=== PATIENT | male | born 1955 | race Caucasian/White ===

== ENCOUNTER 2020-12-26 09:40 | Emergency (ER) | payer MEDICARE ==
[~2020-12-26] VITALS: Ht 177.8 cm; Wt 84.1 kg
[2020-12-26] MEDS ORDERED: ondansetron/PF 4mg/2ml inj IV ONE ×5 (09:50→14:15)
[2020-12-26] MEDS ORDERED: fentaNYL/PF 50MCG/1 ML 2ML syringe IV PRN (09:50)
[2020-12-26] MEDS ORDERED: fentaNYL/PF 50MCG/1 ML 2ML syringe IV ONE ×2 (10:22→11:10)
[2020-12-26] MEDS ORDERED: bacitracin 15gm ointment TP ONE (10:25)
[2020-12-26] MEDS ORDERED: TETanus/Pertussis (Acell)/Diphther VAC/PF (Tdap-Adult) 0.5ml syringe IMVAC ONE (10:25)
[2020-12-26] MEDS ORDERED: iohexol 300mg/ml 100ml inj. ONE (10:43)
[2020-12-26 10:44] LABS: BASOPHILS % (AUTO) 0.3 % (0-1); EOSINOPHILS # (AUTO) 0.1 X10'3 (0-0.9); EOSINOPHILS % (AUTO) 1.2 % (0-6); HEMATOCRIT 42.5 % (42.0-52.0); HEMOGLOBIN 14.6 g/dl (14.0-17.9); LYMPHOCYTES # (AUTO) 0.7 X10'3 (1.1-4.8); LYMPHOCYTES % (AUTO) 11.6 % (21-51); MEAN CORPUSCULAR HEMOGLOBIN 34.2 PG (27.0-31.0); MEAN CORPUSCULAR HGB CONC 34.4 g/dL (33.0-36.5); MEAN CORPUSCULAR VOLUME 99.5 FL (78-98); MEAN PLATELET VOLUME 8.9 FL (7.4-10.4); MONOCYTES # (AUTO) 0.5 X10'3 (0-0.9); MONOCYTES % (AUTO) 7.8 % (2-12); NEUTROPHILS # (AUTO) 4.7 X10'3 (1.8-7.7); NEUTROPHILS % (AUTO) 79.1 % (42-75); PLATELET COUNT 138 X10'3 (140-440); RED BLOOD COUNT 4.28 X10'6 (4.70-6.10); RED CELL DISTRIBUTION WIDTH 13.1 % (11.5-14.5)
[2020-12-26 10:58] LABS: ALANINE AMINOTRANSFERASE 24 U/L (12-78); ALBUMIN 3.8 G/DL (3.4-5.0); ALBUMIN/GLOBULIN RATIO 1.2 (1.1-1.5); ALKALINE PHOSPHATASE 50 IU/L (46-116); ANION GAP 9 (8-16); ASPARTATE AMINO TRANSFERASE 17 U/L (10-37); BILIRUBIN,TOTAL 0.8 MG/DL (0.1-1.0); BLOOD UREA NITROGEN 12 MG/DL (7-18); BUN/CREATININE RATIO 12.6 (5.4-32.0); CALCIUM 8.7 MG/DL (8.5-10.1); CHLORIDE 103 MMOL/L (99-107); CREATININE 0.95 MG/DL (0.60-1.10); GLUCOSE 113 MG/DL (70-104); PARTIAL THROMBOPLASTIN TIME 25 SECONDS (22-32); SODIUM 139 MMOL/L (135-145); TOTAL CARBON DIOXIDE 26.8 MMOL/L (24-32); eGFR 80 ML/MIN
[2020-12-26 11:10] LABS: CKMB RELATIVE INDEX 0.9 RATIO (0-2.5); CREATINE KINASE 133 U/L (39-308); TROPONIN I < 0.04 NG/ML (0.0-0.05)
[2020-12-26] MEDS ORDERED: etomidate 2mg/ml inj. IV ONE (11:10)
[2020-12-26] MEDS: fentaNYL/PF 50MCG/1 ML 2ML syringe IV PRN ×2 (11:35→12:25)
[2020-12-26] MEDS ORDERED: ceFAZolin 1000mg inj IV ONE (11:50)
[2020-12-26] MEDS ORDERED: gentamicin in saline, iso-osm 80 MG/50 ML premix IV ONE (11:50)
[2020-12-26] MEDS ORDERED: CEPH-585 PO (12:20)
[2020-12-26] MEDS ORDERED: cefazolin/dext.iso 2gm/100ml 100 ML IV ONE (12:35)
[2020-12-26] MEDS ORDERED: ONDA4TAB6 PO (12:36)
[2020-12-26] MEDS ORDERED: HYDR-3972 PO (12:36)
[2020-12-26] MEDS ORDERED: gentamicin inj 80 MG in normal saline 100ml IV soln 98 ML IV ONE (12:40)
[2020-12-26] MEDS ORDERED: HYDROcodone/acetaminophen 10/325mg tab PO ONE ×2 (14:00→14:15)
[2020-12-26 14:35] VITALS: BP 153/92
[2021-01-03] MEDS ORDERED: HYDR-3972 PO (09:29)
[2021-01-03] MEDS ORDERED: ONDA-103 PO (09:29)
[2021-01-03] MEDS ORDERED: CEPH500C2 PO (09:29)
== END 2020-12-26 15:08 | disposition home or self-care (01) ==
LOC: ER 09:40
DX: S52.022A Displaced fracture of olecranon process without intraarticular extension of left ulna, initial encounter for closed fracture (principal); S53.105A Unspecified dislocation of left ulnohumeral joint, initial encounter; W13.2XXA Fall from, out of or through roof, initial encounter; Y93.89 Activity, other specified; Y92.89 Other specified places as the place of occurrence of the external cause; Y99.9 Unspecified external cause status
CPT/HCPCS: 24675; 36415; 71045; 71260; 73060; 73070; 73080; 73200; 74177; 80053; 82550; 82553; 83874; 84484; 85025; 85610; 85730; 86885; 86900; 86901; 90471; 90715; 94799; 96365; 96368; 96375; 96376; 99285; J1580; J2405; J3010; Q9967; 96374; 99152; 99153

== ENCOUNTER → 2021-01-03 | Outpatient (CLI) | payer MEDICARE ==
[~2021-01-03] VITALS: Ht 177.8 cm; Wt 79.4 kg
[~2021-01-03] MED LIST: CEPH-585 PO; CEPH500C2 PO; HYDR-3972 PO; ONDA-103 PO; ONDA4TAB6 PO; cefazolin/dext.iso 2gm/100ml IV ONE; famotidine 20mg tablet PO ONE; ringers solution, lacted 1,000 ML IV SCH
[2021-01-03 12:47] LABS: BASOPHILS % (AUTO) 0.4 % (0-1); EOSINOPHILS # (AUTO) 0.1 X10'3 (0-0.9); EOSINOPHILS % (AUTO) 2.2 % (0-6); LYMPHOCYTES # (AUTO) 0.9 X10'3 (1.1-4.8); LYMPHOCYTES % (AUTO) 15.7 % (21-51); MEAN CORPUSCULAR HEMOGLOBIN 33.9 PG (27.0-31.0); MEAN CORPUSCULAR HGB CONC 34.2 g/dL (33.0-36.5); MEAN CORPUSCULAR VOLUME 99.1 FL (78-98); MEAN PLATELET VOLUME 8.7 FL (7.4-10.4); MONOCYTES # (AUTO) 0.6 X10'3 (0-0.9); MONOCYTES % (AUTO) 9.5 % (2-12); NEUTROPHILS # (AUTO) 4.2 X10'3 (1.8-7.7); NEUTROPHILS % (AUTO) 72.2 % (42-75); PRE OP HEMATOCRIT 40.2 % (42.0-52.0); PRE OP HEMOGLOBIN 13.7 g/dL (14.0-17.9); PRE OP PLATELET COUNT 179 X10'3 (140-440); RED BLOOD COUNT 4.06 X10'6 (4.70-6.10)
[2021-01-03 13:04] LABS: ALBUMIN 3.7 G/DL (3.4-5.0); ALBUMIN/GLOBULIN RATIO 1.1 (1.1-1.5); ALKALINE PHOSPHATASE 59 IU/L (46-116); BLOOD UREA NITROGEN 7 MG/DL (7-18); BUN/CREATININE RATIO 8.5 (5.4-32.0); CALCIUM 8.8 MG/DL (8.5-10.1); CHLORIDE 103 MMOL/L (99-107); CREATININE 0.82 MG/DL (0.60-1.10); PRE OP ALT 28 U/L (30-65); PRE OP ANION GAP 4 (8-16); PRE OP AST 18 U/L (10-37); PRE OP BILIRUB, TOTAL 0.9 MG/DL (0.0-1.0); PRE OP GLUCOSE 93 MG/DL (70-104); PRE OP POTASSIUM 4.1 MMOL/L (3.4-5.1); PRE OP SODIUM 137 MMOL/L (135-145); TOTAL CARBON DIOXIDE 30.5 MMOL/L (24-32); TOTAL PROTEIN 7.2 G/DL (6.4-8.2); eGFR > 90 ML/MIN
== END | disposition home or self-care (01) ==
LOC: LAB 08:00 → EDSTATUS 01-04 11:45
PROVIDERS: ATTEND Orthopaedic Surgery
DX: Z01.818 Encounter for other preprocedural examination (principal); S52.002A Unspecified fracture of upper end of left ulna, initial encounter for closed fracture; M79.89 Other specified soft tissue disorders; X58.XXXA Exposure to other specified factors, initial encounter; Y93.89 Activity, other specified; Y92.89 Other specified places as the place of occurrence of the external cause; Y99.8 Other external cause status
CPT/HCPCS: 36415; 73200; 80053; 85025; 93005; J7120